=== PATIENT | male | born 1960 | race Caucasian/White ===

== ENCOUNTER 2016-12-12 12:32 | Emergency (ER) | payer OTHER ==
[~2016-12-12] VITALS: Ht 172.7 cm; Wt 80.0 kg
[~2016-12-12 12:32] MED LIST: DICL75 PO; DILTCD240 PO; GEMF600T PO; LISI-360 PO; MELO15TA2 PO; PARO20 PO; PRED20 PO; PROT40TA PO
[2016-12-12 12:39] VITALS: BP 110/70; PULSE 76; RESP 16; TEMP 97.8; O2SAT 98
[2016-12-12] MEDS ORDERED: DILT-47 PO (13:14)
[2016-12-12] MEDS ORDERED: HYDR-3583 PO (13:14)
[2016-12-12] MEDS ORDERED: GABA100C4 PO (13:14)
[2016-12-12] MEDS ORDERED: BACL10TA PO (13:14)
[2016-12-12] MEDS ORDERED: DICL1CAP4 PO (13:14)
[2016-12-12] MEDS ORDERED: METO50TA11 PO (13:14)
[2016-12-12] MEDS ORDERED: GEMF600T PO (13:14)
[2016-12-12] MEDS ORDERED: PANT40TA3 PO (13:14)
[2016-12-12] MEDS ORDERED: FISH100020 PO (13:16)
--- NOTE | 2016-12-12 13:19 | PD ---
HPI Chief Complaint: Fall Time Seen by Provider: 12:59 Travel History International Travel<30 days: No Contact w/Intl Traveler<30days: No Traveled to known affect area: No History of Present Illness HPI This is a 56-year-old male history of hypertension, hyperlipidemia, chronic neck and back pain, and presents today with complaints of tripping fall. The patient states he was walking in his kitchen when he slipped and fell on the tile floor. He reports loss of consciousness. He reports profuse bleeding from the back of his head. He denies any back pain. Denies any chest pain. He has chronic neck and back pain. There is no numbness or tingling of his extremities. There is no loss of bowel or bladder function or incontinence. She reports his pain as a 5-6 out of 10 on the pain scale. Patient reports his last tetanus was within 5 years. PFSH Past Medical History Arthritis: Yes (right shoulder and melva hands) Asthma: No Autoimmune Disease: No Blood Disorders: No Bipolar Disorder: Yes Anxiety: Yes Depression: Yes Heart Rhythm Problems: No Cancer: No Cardiovascular Problems: Yes (HTN) High Cholesterol: Yes Chemotherapy: No Chest Pain: No Congestive Heart Failure: No COPD: No Cerebrovascular Accident: No Diabetes: No Diminished Hearing: No Endocrine: No Gastrointestinal Disorders: No GERD: Yes Glaucoma: No Genitourinary: No Headaches: No Hepatitis: No Hiatal Hernia: No Hypertension: Yes Immune Disorder: No Inguinal Hernia: Yes (REPAIR RIGHT SIDE 1961) Implanted Vascular Access Dvce: No Kidney Stones: No Musculoskeletal: Yes (RIGHT SHLDR X 4) Neurologic: No Psychiatric: Yes (DEPRESSION) Reproductive: No Respiratory: No Immunizations Current: Yes Migraines: No Myocardial Infarction: No Radiation Therapy: No Renal Failure: No Seizures: No Sickle Cell Disease: No Sleep Apnea: No Thyroid Disease: No Ulcer: No PNEUMOCCOCAL Vaccine (Year): 2 Past Surgical History Abdominal Surgery: Yes (BILAT ING. HERNIAS) AICD: No Appendectomy: No Arteriovenous Shunt: No Cardiac Surgery: No Cholecystectomy: No Coronary Artery Bypass Graft: No Ear Surgery: No Endocrine Surgery: No Eye Surgery: No Genitourinary Surgery: Yes (VASECTOMY) Insulin Pump: No Joint Replacement: Yes (RIGHT SHOULDER) Oral Surgery: Yes (wisdom teeth EXTRACTED) Pacemaker: No Thoracic Surgery: Yes (BRONCHOSCOPY) Other Surgery: Yes (HEMMROIDECTOMY) Social History Alcohol Use: Yes (2-3 BEERS/DAY) Tobacco Use: No Substance Use: No Allergies-Medications (Allergen,Severity, Reaction): Coded Allergies: bee venom protein (honey bee) (Unverified Allergy, Severe, 12/12/16) latex (Unverified Allergy, Severe, RASH, 12/12/16) Reported Meds & Prescriptions Reported Meds & Active Scripts Active Reported Fish Oil 1000 mg ([place]-3 Fatty Acids) 300 Mg-1,000 Mg Cap 2,000 Mg PO DAILY Hydrocodone-Acetaminophen 10-325 mg Tab 1 Tab PO TID PRN Gabapentin 100 Mg Cap 200 Mg PO TID Gemfibrozil 600 Mg Tab 600 Mg PO BIDAC Take 30 minutes prior to breakfast and dinner. Metoprolol Succinate ER 24 HR (Metoprolol Succinate) 50 Mg Tab 50 Mg PO DAILY Diltiazem ER 24 HR 300 Mg Caper 300 Mg PO DAILY Pantoprazole (Pantoprazole Sodium) 40 Mg Tab 40 Mg PO DAILY Zorvolex (Diclofenac) 35 Mg Cap 75 Mg PO BID Baclofen 10 Mg Tab 10 Mg PO BID Review of Systems Except as stated in HPI: all other systems reviewed are Neg General / Constitutional: No: Fever, Chills Eyes: No: Diploplia, Blurred Vision HENT: Positive: Headaches (posterior occiput), No: Lightheadedness, Neck Stiffness, Neck Pain Cardiovascular: No: Chest Pain or Discomfort, Palpitations Respiratory: No: Cough, Shortness of Breath Gastrointestinal: No: Nausea, Vomiting, Abdominal Pain Genitourinary: No: Incontinence Musculoskeletal: No: Weakness (extremity), Pain Neurologic: Positive: Headache, Other (ported loss of consciousness), No: Change in Mentation (posterior occiput) Physical Exam Narrative GENERAL: Well-developed well-nourished male in no obvious distress. Patient does have a bandage wrapped around his head. SKIN: Focused skin assessment warm/dry. HEAD: Normocephalic. Patient has a 1 centimeter laceration to his posterior occiput. There is no active bleeding at the time EYES: Pupils equal and round. No scleral icterus. No injection or drainage. ENT: No nasal bleeding or discharge. Mucous membranes pink and moist. NECK: Trachea midline. Supple. CARDIOVASCULAR: Regular rate and rhythm. No murmur appreciated. RESPIRATORY: No accessory muscle use. Clear to auscultation. Breath sounds equal bilaterally. GASTROINTESTINAL: Abdomen soft, non-tender, nondistended. Hepatic and splenic margins not palpable. MUSCULOSKELETAL: No obvious deformities. No clubbing. No cyanosis. No edema. NEUROLOGICAL: Awake and alert. No obvious cranial nerve deficits. Motor grossly within normal limits. Normal speech. PSYCHIATRIC: Appropriate mood and affect; insight and judgment normal. Data Data Last Documented VS Vital Signs Date Time Temp Pulse Resp B/P (MAP) Pulse Ox O2 Delivery O2 Flow Rate FiO2 12/12/16 12:39 97.8 76 16 110/70 (83) [address] Brain W/O Iv Contrast(Rout) (12/12/16 13:00) Ct Cerv Spine W/O Contrast (12/12/16 13:00) Complete Blood Count With Diff (12/12/16 13:00) Prothrombin Time / Inr (Pt) (12/12/16 13:00) Act Partial Throm Time (Ptt) (12/12/16 13:00) Alcohol (Ethanol) (12/12/16 13:00) Labs Laboratory Tests Test 12/12/16 13:35 White Blood Count 4.9 TH/MM3 Red Blood Count 4.27 MIL/MM3 Hemoglobin 14.4 GM/DL Hematocrit 42.9 % Mean Corpuscular Volume 100.4 FL Mean Corpuscular Hemoglobin 33.8 PG Mean Corpuscular Hemoglobin Concent 33.7 % Red Cell Distribution Width 13.6 % Platelet Count 280 TH/MM3 Mean Platelet Volume 7.0 FL Neutrophils (%) (Auto) 63.3 % Lymphocytes (%) (Auto) 24.3 % Monocytes (%) (Auto) 7.9 % Eosinophils (%) (Auto) 3.1 % Basophils (%) (Auto) 1.4 % Neutrophils # (Auto) 3.1 TH/MM3 Lymphocytes # (Auto) 1.2 TH/MM3 Monocytes # (Auto) 0.4 TH/MM3 Eosinophils # (Auto) 0.2 TH/MM3 Basophils # (Auto) 0.1 TH/MM3 CBC Comment DIFF FINAL Differential Comment Prothrombin Time 10.0 SEC Prothromb Time International Ratio 0.9 RATIO Activated Partial Thromboplast Time 27.3 SEC Ethyl Alcohol Level 330 MG/DL MDM Medical Decision Making Medical Screen Exam Complete: Yes Emergency Medical Condition: Yes Differential Diagnosis Scalp laceration versus intracranial hemorrhage versus skull fracture versus cervical spine injury Narrative Course 86-year-old male presents after having a mechanical fall and slipping and striking the back of his head. The patient has laceration to the back of his head this been repaired by JACINTA Del Toro. CT brain and cervical spine show no evidence of acute injury. Patient's tetanus shot is up-to-date. Alcohol level is 3:30. The patient is awake appropriate. His is come to pick him up. He's been warned about drinking alcohol. He will be instructed to have his ozzy removed in 7-10 days. Diagnosis Primary Impression: posterior scalp laceration Additional Impressions: Closed head injury Alcohol intoxication Additional Instructions: Avoid drinking alcohol. Follow up with [facility] if you wish to try and quit drinking. Ozzy removed in 7-10 days. Disposition: 01 DISCHARGE HOME Condition: Stable Tremayne Short MD Dec 12, 2016 13:19
--- NOTE | 2016-12-12 13:29 | PD ---
Physical Exam Date Seen by Provider: Dec 12, 2016 Time Seen by Provider: 13:28 Narrative I was asked by Dr. Short to repair laceration to the occipital scalp. Please see his documentation for full history and physical. Data Data Last Documented VS Vital Signs Date Time Temp Pulse Resp B/P (MAP) Pulse Ox O2 Delivery O2 Flow Rate FiO2 12/12/16 12:39 97.8 76 16 110/70 (83) [address] Brain W/O Iv Contrast(Rout) (12/12/16 13:00) Ct Cerv Spine W/O Contrast (12/12/16 13:00) Complete Blood Count With Diff (12/12/16 13:00) Prothrombin Time / Inr (Pt) (12/12/16 13:00) Act Partial Throm Time (Ptt) (12/12/16 13:00) Alcohol (Ethanol) (12/12/16 13:00) MDM Supervised Visit with MIMI: No Procedures Procedure Narrative LACERATION LOCATION: Scalp LENGTH: 1 cm NUMBER OF STITCHES/ROXY: 2 roxy REPAIR: The area of the laceration was prepped with Betadine and sterilely draped. The wound was copiously irrigated and explored without evidence of foreign body, tendon injury or neurovascular injury. The wound was closed using roxy. This was a single layer repair. A sterile dressing was applied. The patient was advised to keep the dressing clean and dry. Patient tolerated the procedure well. Sindhu Chavez Dec 12, 2016 13:29
[2016-12-12 13:57] LABS: AUTOMATED NEUTROPHIL # 3.1 TH/MM3 (1.8-7.7); BASOPHIL # 0.1 TH/MM3 (0-0.2); BASOPHIL % 1.4 % (0.0-2.0); EOSINOPHIL # 0.2 TH/MM3 (0-0.4); EOSINOPHIL % 3.1 % (0.0-4.0); HEMATOCRIT 42.9 % (39.0-51.0); HEMO FLAGS DIFF FINAL; LYMPH % 24.3 % (9.0-44.0); LYMPHOCYTE # 1.2 TH/MM3 (1.0-4.8); MEAN CELL VOLUME 100.4 FL (80.0-100.0); MEAN CORPUSCULAR HEMOGLOBIN 33.8 PG (27.0-34.0); MEAN CORPUSCULAR HGB CONC 33.7 % (32.0-36.0); MONO % 7.9 % (0.0-8.0); NEUT % 63.3 % (16.0-70.0); PLATELET COUNT 280 TH/MM3 (150-450); RED BLOOD COUNT 4.27 MIL/MM3 (4.50-5.90); RED CELL DISTRIBUTION WIDTH 13.6 % (11.6-17.2); WHITE BLOOD COUNT 4.9 TH/MM3 (4.0-11.0)
[2016-12-12 14:07] LABS: APTT (PATIENT) 27.3 SEC (24.3-30.1); INTERNATIONAL NORMALIZED RATIO 0.9 RATIO
--- NOTE | 2016-12-12 14:37 | RADRPT ---
EXAM DATE/TIME: 12/12/2016 14:20 [facility] COMPARISON: CT BRAIN W/O CONTRAST, July 23, 2015, 21:17. INDICATIONS : Fall today, laceration to posterior head. RADIATION DOSE: 39.58 CTDIvol (mGy) MEDICAL HISTORY : Hypertension. SURGICAL HISTORY : None. ENCOUNTER: Initial ACUITY: 1 day PAIN SCALE: 4/10 LOCATION: Bilateral occipital head TECHNIQUE: Multiple contiguous axial images were obtained of the head. Using automated exposure control and adj ustment of the mA and/or kV according to patient size, radiation dose was kept as low as reasonably a chievable to obtain optimal diagnostic quality images. DICOM format image data is available electro nically for review and comparison. FINDINGS: CEREBRUM: Moderate cerebral atrophy out of proportion for patient's age. Stable enlargement of the ventricles s imilar to prior exams. Redemonstration of bilateral middle cranial fossa arachnoid cysts and ann cis terna magnum. No evidence of midline shift, mass lesion, hemorrhage or acute infarction. No extra-ax ial fluid collections are seen. POSTERIOR FOSSA: The cerebellum and brainstem are intact. The 4th ventricle is midline. The cerebellopontine angle i s unremarkable. EXTRACRANIAL: The visualized portion of the orbits is intact. SKULL: The calvaria is intact. No evidence of skull fracture. CONCLUSION: 1. No acute intracranial abnormality. 2. Stable cerebral atrophy, diffuse ventriculomegaly, and bitemporal arachnoid cysts, as above. Guillermo Moon MD on December 12, 2016 at 14:31 Board Certified Radiologist. This report was verified electronically.
--- NOTE | 2016-12-12 14:56 | RADRPT ---
EXAM DATE/TIME: 12/12/2016 14:23 [facility] COMPARISON: CT CERVICAL SPINE W/O CONTRAST, July 23, 2015, 21:17. INDICATIONS : Fall today, laceration to posterior head. RADIATION DOSE: 34.23 CTDIvol (mGy) MEDICAL HISTORY : Hypertension. SURGICAL HISTORY : None. ENCOUNTER: Initial ACUITY: 1 day PAIN SCALE: 0/10 LOCATION: Bilateral neck TECHNIQUE: Volumetric scanning of the cervical spine was performed. Multiplanar reconstructions in the sagittal, coronal and oblique axial planes were performed. Using automated exposure control and adjustment o f the mA and/or kV according to patient size, radiation dose was kept as low as reasonably achievable to obtain optimal diagnostic quality images. DICOM format image data is available electronically f or review and comparison. : FINDINGS: Vertebral body heights are stable. Osseous structures are intact without evidence for acute bony frac ture. Dens is intact. Redemonstration of mild grade 1 anterolisthesis of C3 on C4 and C4 on C5. There is reversal of normal cervical lordosis. Sagittal alignment is otherwise stable. There is a normal C 1-2 relationship. Multilevel facet arthropathy. Facets are otherwise aligned. Degenerative spondylosi s most prominently in the lower cervical spine from C4-7. There is no significant prevertebral soft t issue hematoma. No significant cervical adenopathy or gross mass. The thyroid appears unremarkable. V isualized lung apices are clear without pneumothorax. CONCLUSION: 1. No acute fracture or new subluxation. 2. Redemonstration of advanced degenerative spondylosis of the cervical spine. Guillermo Moon MD on December 12, 2016 at 14:50 Board Certified Radiologist. This report was verified electronically.
== END 2016-12-12 17:28 | disposition home or self-care (01) ==
LOC: NEPC 12:32
DX: S01.01XA Laceration without foreign body of scalp, initial encounter (principal); S09.90XA Unspecified injury of head, initial encounter; F10.929 Alcohol use, unspecified with intoxication, unspecified; I10 Essential (primary) hypertension; E78.5 Hyperlipidemia, unspecified; W01.0XXA Fall on same level from slipping, tripping and stumbling without subsequent striking against object, initial encounter; Y92.000 Kitchen of unspecified non-institutional (private) residence as the place of occurrence of the external cause; Z79.899 Other long term (current) drug therapy; Z87.39 Personal history of other diseases of the musculoskeletal system and connective tissue; Z86.59 Personal history of other mental and behavioral disorders; Z86.79 Personal history of other diseases of the circulatory system; Z87.19 Personal history of other diseases of the digestive system
CPT/HCPCS: 12001; 70450; 72125; 80307; 85025; 85610; 85730; 99285

== ENCOUNTER 2017-08-25 17:10 | Emergency (ER) | payer MEDICAID, OTHER ==
[~2017-08-25 17:10] MED LIST changes: +BACL10TA PO; +DICL1CAP4 PO; -DICL75 PO; +DILT-47 PO; -DILTCD240 PO; +FISH100020 PO; +GABA100C4 PO; +HYDR-3583 PO; -LISI-360 PO; -MELO15TA2 PO; +METO1TAB9 PO; +PANT40TA3 PO; -PARO20 PO; -PRED20 PO; -PROT40TA PO
[2017-08-25 17:31] VITALS: BP 116/61; PULSE 70; RESP 16; TEMP 97.9; O2SAT 98
[2017-08-25] MEDS ORDERED: ACETAMINOPHEN/HYDROcodone 325 MG/5 MG TAB PO ONE (18:00)
--- NOTE | 2017-08-25 18:14 | PD ---
HPI Chief Complaint: Back/ Neck Pain or Injury Time Seen by Provider: 17:41 Travel History International Travel<30 days: No Contact w/Intl Traveler<30days: No Traveled to known affect area: No History of Present Illness HPI 57-year-old male presents to the emergency department for evaluation of low back pain after a fall that occurred 5 days ago. Patient states he tripped and fell landed on his lower back. He denies any head injury or LOC. No neck pain. No chest pain or abdominal pain. No vomiting. He states he is not on anticoagulants. Patient has been ambulatory, but with pain. Movement will exacerbate the pain. Lying still will help alleviate the pain. Current pain is 8/10, aching and throbbing, without radiation. Moderate severity. PFSH Past Medical History Arthritis: Yes (right shoulder and melva hands) Asthma: No Autoimmune Disease: No Blood Disorders: No Bipolar Disorder: Yes Anxiety: Yes Depression: Yes Heart Rhythm Problems: No Cancer: No Cardiovascular Problems: Yes (HTN) High Cholesterol: Yes Chemotherapy: No Chest Pain: No Congestive Heart Failure: No COPD: No Cerebrovascular Accident: No Diabetes: No Diminished Hearing: No Endocrine: No Gastrointestinal Disorders: No GERD: Yes Glaucoma: No Genitourinary: No Headaches: No Hepatitis: No Hiatal Hernia: No Hypertension: Yes Immune Disorder: No Inguinal Hernia: Yes (REPAIR RIGHT SIDE 1961) Implanted Vascular Access Dvce: No Kidney Stones: No Musculoskeletal: Yes (RIGHT SHLDR X 4) Neurologic: No Psychiatric: Yes (DEPRESSION) Reproductive: No Respiratory: No Immunizations Current: Yes Migraines: No Myocardial Infarction: No Radiation Therapy: No Renal Failure: No Seizures: No Sickle Cell Disease: No Sleep Apnea: No Thyroid Disease: No Ulcer: No PNEUMOCCOCAL Vaccine (Year): 2 ?: Not Past Surgical History Abdominal Surgery: Yes (BILAT ING. HERNIAS) AICD: No Appendectomy: No Arteriovenous Shunt: No Cardiac Surgery: No Cholecystectomy: No Coronary Artery Bypass Graft: No Ear Surgery: No Endocrine Surgery: No Eye Surgery: No Genitourinary Surgery: Yes (VASECTOMY) Insulin Pump: No Joint Replacement: Yes (RIGHT SHOULDER) Oral Surgery: Yes (wisdom teeth EXTRACTED) Pacemaker: No Thoracic Surgery: Yes (BRONCHOSCOPY) Other Surgery: Yes (hemmorhoidectomy) Social History Alcohol Use: Yes (ocass) Tobacco Use: No Substance Use: No Allergies-Medications (Allergen,Severity, Reaction): Coded Allergies: bee venom protein (honey bee) (Verified Allergy, Severe, ITCHING, 12/19/16) latex (Verified Allergy, Severe, RASH, 12/19/16) Reported Meds & Prescriptions Reported Meds & Active Scripts Active Reported Fish Oil 1000 mg ([place]-3 Fatty Acids) 300 Mg-1,000 Mg Cap 2,000 Mg PO DAILY Gabapentin 100 Mg Cap 200 Mg PO TID Gemfibrozil 600 Mg Tab 600 Mg PO BIDAC Take 30 minutes prior to breakfast and dinner. Metoprolol Succinate ER 24 HR (Metoprolol Succinate) 50 Mg Tab 50 Mg PO DAILY Diltiazem ER 24 HR 300 Mg Caper 150 Mg PO DAILY Pantoprazole (Pantoprazole Sodium) 40 Mg Tab 40 Mg PO DAILY Zorvolex (Diclofenac) 35 Mg Cap 75 Mg PO BID Baclofen 10 Mg Tab 10 Mg PO BID Review of Systems Except as stated in HPI: all other systems reviewed are Neg Physical Exam Narrative GENERAL: Well-nourished, well-developed male patient, afebrile. SKIN: Focused skin assessment warm/dry. HEAD: Normocephalic. Atraumatic. EYES: No scleral icterus. No injection or drainage. NECK: Supple, trachea midline. No JVD or lymphadenopathy. CARDIOVASCULAR: Regular rate and rhythm without murmurs, gallops, or rubs. Bilateral radial and pedal pulses are 2+. RESPIRATORY: Breath sounds equal bilaterally. No accessory muscle use. Lung sounds are clear to auscultation. GASTROINTESTINAL: Abdomen soft, non-tender, nondistended. MUSCULOSKELETAL: No cyanosis, or edema. BACK: No obvious deformity. No CVA tenderness. Patient has tenderness to palpation over lower lumbar spine/coccyx area. Data Data Last Documented VS Vital Signs Date Time Temp Pulse Resp B/P (MAP) Pulse Ox O2 Delivery O2 Flow Rate FiO2 08/25/17 17:31 97.9 70 16 116/61 (79) 98 Orders Orders Spine, Lumbar - Ltd (Ap & Lat) (08/25/17 ) Pelvis, Ap Only (Routine) (08/25/17 ) Acetamin-Hydrocod 325-5 Mg (Arthur 5-325 (08/25/17 18:00) MDM Medical Decision Making Medical Screen Exam Complete: Yes Emergency Medical Condition: Yes Medical Record Reviewed: Yes Differential Diagnosis contusion vs. fracture vs. muscle strain Narrative Course 57 year old male presents to the emergency department for evaluation of lower back pain after a trip and fall. X-ray of the lumbar spine and pelvis are ordered and pending. X-ray of the lumbar spine shows no acute fracture. X-ray of the pelvis shows no acute fracture or dislocation. Patient is stable for discharge home. He will be discharged with a short term prescription for Tramadol for pain. He is instructed to ice/heat and follow up with his primary care provider. Diagnosis Primary Impression: Low back pain Qualified Codes: M54.5 - Low back pain Additional Impression: Contusion Qualified Codes: S30.0XXA - Contusion of lower back and pelvis, initial encounter Referrals: Primary Care Physician call for appointment Patient Instructions: Acute Low Back Pain (ED), General Instructions, Narcotic given in the ED Departure Forms: Tests/Procedures, Work Release Enter return to work date: Aug 28, 2017 Additional Instructions: Take Tramadol as directed as needed for pain. Caution this can make you drowsy so do not drive after taking. Ice/heat. Follow up with your primary care provider. Return to the emergency department for any acute, worsening of symptoms. Med/Other Pt SpecificInfo: Prescription(s) given Scripts Tramadol (Tramadol) 50 Mg Tab 50 MG PO Q6H Y for PAIN, #12 TAB 0 Refills Prov: Sindhu Chavez 08/25/17 Disposition: 01 DISCHARGE HOME Condition: Stable Sindhu Chavez August 25, 2017 18:14
--- NOTE | 2017-08-25 18:34 | RADRPT ---
EXAM DATE: 08/25/2017 6:29 PM EDT AGE/SEX: 57 years / Male INDICATIONS: Fall days ago. Pelvic pain. CLINICAL DATA: This is the patient's initial encounter. Patient reports that signs and symptoms have been present for 4 - 6 days and indicates a pain score of 6/10. MEDICAL/SURGICAL HISTORY: None. None. COMPARISON: [facility] [place] AP [place], 02/12/2012. . FINDINGS: Examination of the pelvis demonstrates no evidence of fracture or dislocation. Bony mineralization i s normal. There is no widening of the sacroiliac joints. No foreign body is identified. CONCLUSION: 1. No acute fracture or dislocation. Electronically signed by: Guillermo Moon MD 08/25/2017 6:32 PM EDT
--- NOTE | 2017-08-25 18:50 | RADRPT ---
EXAM DATE: 08/25/2017 6:34 PM EDT AGE/SEX: 57 years / Male INDICATIONS: Fall days ago. Pelvic pain. Low back pain. CLINICAL DATA: This is the patient's initial encounter. Patient reports that signs and symptoms have been present for 4 - 6 days and indicates a pain score of 6/10. MEDICAL/SURGICAL HISTORY: None. None. COMPARISON: No prior [facility] exams available for comparison. FINDINGS: Vertebral body heights are intact without evidence for compression deformity. There is endplate scler osis at L4-5 and L5-S1 with mild grade one 4 mm anterolisthesis of L4 on L5. Multilevel degenerative change including posterior osteophytes most prominently at L4-5 and L5-S1. There is also facet arthro birgit again most prominently in the lower lumbar spine. There is no paravertebral soft tissue abnorma lity. CONCLUSION: 1. No acute fracture. 2. 4 mm anterolisthesis of L4 on L5 likely due to degenerative facet arthrosis. 3. Multilevel degenerative spondylosis of the lumbar spine most prominently at L4-5 and L5-S1. Electronically signed by: Guillermo Moon MD 08/25/2017 6:48 PM EDT
[2017-08-25] MEDS ORDERED: TRAM50TA PO (18:55)
== END 2017-08-25 19:04 | disposition home or self-care (01) ==
LOC: NEPD 17:10
DX: M54.5 Low back pain (principal); S30.0XXA Contusion of lower back and pelvis, initial encounter; W01.0XXA Fall on same level from slipping, tripping and stumbling without subsequent striking against object, initial encounter
CPT/HCPCS: 72100; 72170; 99284